=== PATIENT | male | born 2000 | race Caucasian/White ===

== ENCOUNTER 2020-06-25 21:43 | Emergency (ER) | payer SELFPAY ==
[2020-06-25] MEDS ORDERED: Take Home: Amoxicillin 875 MG Tab, 2 Tab Pack PO ONE (22:58)
--- NOTE | 2020-06-25 23:02 | EDM.PDOC ---
ED HPI GENERAL MEDICAL PROBLEM - General Stated Complaint: TONSIL PROBLEM Time Seen by Provider: 06/25/20 22:10 Source of Information: Reports: Patient - History of Present Illness INITIAL COMMENTS - FREE TEXT/NARRATIVE: Ronen is a 20 y/o male who comes to the ER with complaints of sore throat that he has had for a couple days. He is very irritated and it hurts to swallow. No fever or any other symptoms. He reports having alot of problems with tonsil stones and has seen ENT in the past, but this is different. - Related Data Allergies Allergy/AdvReac Type Severity Reaction Status Date / Time No Known Allergies Allergy Verified 12/18/14 19:03 Home Meds: Home Meds Amoxicillin 875 mg PO BID #12 tablet 06/25/20 [Rx] Review of Systems - Review of Systems Review Of Systems: See Below Constitutional: Reports: No Symptoms Eyes: Reports: No Symptoms Ears: Reports: No Symptoms Nose: Reports: No Symptoms Mouth/Throat: Reports: Painful Swallowing Respiratory: Reports: No Symptoms Cardiovascular: Reports: No Symptoms GI/Abdominal: Reports: No Symptoms Genitourinary: Reports: No Symptoms Musculoskeletal: Reports: No Symptoms Skin: Reports: No Symptoms Neurological: Reports: No Symptoms ED EXAM, GENERAL - Physical Exam Exam: See Below General Appearance: Alert, WD/WN, No Apparent Distress (Adult male) Eye Exam: Bilateral Eye: PERRL Ears: Normal External Exam, Normal Canal, Hearing Grossly Normal, Normal TMs Nose: Normal Inspection, Normal Mucosa Throat/Mouth: Normal Lips, Normal Teeth, Normal Voice, Inflammation (Note erythema to tonsil region, tonsils 2+ with small amount of exudate) Head: Atraumatic, Normocephalic Neck: Normal Inspection, Supple, Non-Tender Respiratory/Chest: No Respiratory Distress, Lungs Clear, Chest Non-Tender Cardiovascular: Normal Peripheral Pulses, Regular Rate, Rhythm GI/Abdominal: Normal Bowel Sounds, Soft (Male) Exam: Deferred Rectal (Males) Exam: Deferred Back Exam: Other (Deferred) Extremities: Normal Inspection, Normal Range of Motion, Normal Capillary Refill Neurological: Alert, Oriented, CN II-XII Intact, Normal Cognition, Normal Gait Psychiatric: Normal Affect Skin Exam: Warm, Dry, Intact, Normal Color Lymphatic: No Adenopathy Course - Vital Signs Text/Narrative:: 2210 The patient was seen by the [facility]. RST was done. 2255 RST +. Results discussed with patient. Will send him home with a starter pack of Amoxicillin tonight and have him pick the remainder up tomorrow. He was given discharge instructions and left the ER in stable condition. - Orders/Labs/Meds Meds: Medications Discontinued Medications Generic Name Dose Route Start Last Admin Trade Name Isha PRN Reason Stop Dose Admin Amoxicillin 1 packet 06/25/20 22:58 Take Home: Amoxicillin 875 Mg Tab, 2 Tab Pack PO 06/25/20 22:59 ONETIME ONE Departure - Departure Time of Disposition: 23:07 Disposition: DC/Tfer to Hospice - Home 50 Condition: Good Clinical Impression: Strep pharyngitis - Discharge Information *PRESCRIPTION DRUG MONITORING PROGRAM REVIEWED*: No *COPY OF PRESCRIPTION DRUG MONITORING REPORT IN PATIENT MIKE: No Prescriptions: Amoxicillin 875 mg PO BID #12 tablet Instructions: Rapid Strep Test, Strep Throat, Adult, [id number] Referrals: PCP,None [Primary Care Provider] - - Assessment/Plan Assessment:: 1)Strep Pharyngitis Plan: -Amoxicillin 875mg 2x daily x 10 days -May use acetaminophen or ibuprofen as needed for pain -Warm salt water gargles as needed -Follow up with your PCP if your symptoms are not improving or you have any other concerns -Return to the ER as needed
== END 2020-06-25 23:18 | disposition hospice, home (50) ==
LOC: VM.ED 21:43
DX: J02.0 Streptococcal pharyngitis (principal)
CPT/HCPCS: 87880-QW; 99283; A9270-GY